=== PATIENT | female | born 1995 | race American Indian/Alaskan Native ===

== ENCOUNTER 2017-07-07 10:46 | Emergency (ER) | payer OTHER ==
[2017-07-07 11:20] VITALS: RESP 18; TEMP 97.8; O2SAT 100
[2017-07-07] MEDS ORDERED: Sodium Chloride 0.9% 1,000 ML IV STA (11:46)
[2017-07-07] MEDS ORDERED: DiphenhydrAMINE 50 mg/ml Inj IVP STA (11:48)
--- NOTE | 2017-07-07 11:52 | ED PDOC ---
Arrival/HPI - General Chief Complaint: Flu-like Symptoms Time Seen by Provider: 07/07/17 11:28 Historian: Patient - History of Present Illness Narrative History of Present Illness (Text): 07/07/17 11:48 This 21 yo female presents to this emergency department complaining of GALEANA x 4 days. Patient stated she also developed a sore throat, and a back pain x 4 days ago. Patient was seen at [facility] 4 days ago for sore throat, which she was prescribed ABX. Patient also stated she was seen at [facility] [place] 2 days ago for abdominal pain. She stated blood test, and X-rays were normal, and she was prescribed Maalox, Pepcid. Patient denies abdominal pain, nausea, vomiting, shortness of breath chest pain , pelvic pain, urinary symptoms, dizziness, recent travel, drug use, Time/Duration: Other (see hpi) Context: Home Past Medical History - Provider Review Nursing Documentation Reviewed: Yes - Cardiac Hx Cardiac Disorders: No - Pulmonary Hx Respiratory Disorders: No - Neurological Hx Neurological Disorder: No - HEENT Hx HEENT Disorder: Yes Other/Comment: THROAT INFECTION - Renal Hx Renal Disorder: No - Endocrine/Metabolic Hx Endocrine Disorders: No - Hematological/Oncological Hx Blood Disorders: No - Integumentary Hx Dermatological Disorder: No - Musculoskeletal/Rheumatological Hx Musculoskeletal Disorders: Yes Hx Back Pain: Yes - Gastrointestinal Hx Gastrointestinal Disorders: Yes Hx Constipation: Yes - Genitourinary/Gynecological Hx Genitourinary Disorders: No - Psychiatric Hx Psychophysiologic Disorder: No Hx Substance Use: No Family/Social History - Physician Review Nursing Documentation Reviewed: Yes Family/Social History: Other (noncontributory) Smoking Status: Light Smoker < 10 Cigarettes Daily Hx Alcohol Use: Yes Frequency of alcohol use: Socially Hx Substance Use: No Allergies/Home Meds Allergies/Adverse Reactions: Allergies No Known Allergies Allergy (Verified 07/07/17 11:24) Home Medications: Home Meds Medication Instructions Recorded Confirmed Acyclovir 500 mg PO DAILY 07/07/17 07/07/17 Famotidine [Pepcid] 20 mg PO DAILY 07/07/17 07/07/17 Ibuprofen [Motrin Tab] 600 mg PO Q6 PRN 07/07/17 07/07/17 Meclizine [Meclizine*] 25 mg PO Q8 PRN 07/07/17 07/07/17 Penicillin VK [Penicillin VK Tab] 500 mg PO QID 07/07/17 07/07/17 Review of Systems - Review of Systems Constitutional: Normal. absent: Fatigue, Weight Change, Fevers, Night Sweats Eyes: Normal ENT: Normal. absent: Sore Throat, Rhinorrhea, Epistaxis Respiratory: Normal. absent: SOB, Cough, Sputum Cardiovascular: Normal. absent: Chest Pain Gastrointestinal: Normal. absent: Abdominal Pain, Nausea, Vomiting Genitourinary Female: Normal. absent: Dysuria, Frequency Musculoskeletal: Normal. absent: Back Pain Skin: Normal. absent: Rash Neurological: Headache. absent: Dizziness, Focal Weakness, Gait Changes, Speech Changes, Facial Droop, Disequilibrium, Seizure Endocrine: Normal Hemo/Lymphatic: Normal Psychiatric: Normal Physical Exam Vital Signs Temp Pulse Resp BP Pulse Ox 07/07/17 12:45 71 18 118/86 100 07/07/17 11:19 97.8 F 74 18 120/92 H 100 Temperature: Afebrile Blood Pressure: Normal Pulse: Regular Respiratory Rate: Normal Appearance: Positive for: Well-Appearing, Non-Toxic, Comfortable Pain Distress: None Mental Status: Positive for: Alert and Oriented X 3 - Systems Exam Head: Present: Atraumatic, Normocephalic Pupils: Present: PERRL Extroacular Muscles: Present: EOMI Conjunctiva: Present: Normal Mouth: Present: Moist Mucous Membranes Neck: Present: Normal Range of Motion Respiratory/Chest: Present: Clear to Auscultation, Good Air Exchange. No: Respiratory Distress, Accessory Muscle Use Cardiovascular: Present: Regular Rate and Rhythm, Normal S1, S2. No: Murmurs Abdomen: Present: Normal Bowel Sounds. No: Tenderness, Distention, Peritoneal Signs Back: Present: Normal Inspection Upper Extremity: Present: Normal Inspection. No: Cyanosis, Edema Lower Extremity: Present: Normal Inspection. No: Edema Neurological: Present: GCS=15, CN II-XII Intact, Speech Normal, Motor Func Grossly Intact, Normal Sensory Function, Normal Cerebellar Funct, Gait Normal, Other (No neuro focal deficits) Skin: Present: Warm, Dry, Normal Color. No: Rashes Psychiatric: Present: Alert, Oriented x 3, Normal Insight, Normal Concentration Medical Decision Making ED Course and Treatment: 07/07/17 15:06 Re-evaluation. Patient feels better. Discussed results and plan with patient who expresses understanding. All questions answered and there is agreement with the plan to discharge home with instructions. Patient stable for discharge. Return if symptoms persist or worsen. Patient tolerated PO fluids and meals. Patient feels better and whishes to be discharged home. Patient has a normal gait. No neuro focal deficits. Denies dizziness. Re-evaluation Time: 15:06 Reassessment Condition: Re-examined, Improved - Lab Interpretations Lab Results: 07/07/17 12:10 07/07/17 12:10 Lab Results 07/07/17 12:10: Sodium 140, Potassium 4.3, Chloride 104, Carbon Dioxide 24, Anion Gap 17, BUN 11, Creatinine 0.7, Est GFR ( Amer) > 60, Est GFR (Non- Af Amer) > 60, Random Glucose 82, Calcium 10.1, Total Bilirubin 0.7, AST 23, ALT 22, Alkaline Phosphatase 56, Total Protein 8.9 H, Albumin 5.0 H, Globulin 3.9, Albumin/Globulin Ratio 1.3, Lipase 141 07/07/17 12:10: WBC 6.2, RBC 5.19, Hgb 11.5 L, Hct 36.7, MCV 70.7 L, MCH 22.2 L , MCHC 31.3, RDW 15.7 H, Plt Count 206, Gran % 63.6, Lymph % (Auto) 28.6, Pratt % (Auto) 5.9, Eos % (Auto) 1.6, Baso % (Auto) 0.3, Gran # 3.95, Lymph # (Auto) 1.8, Pratt # (Auto) 0.4, Eos # (Auto) 0.1, Baso # (Auto) 0.02 07/07/17 12:00: Urine Opiates Screen Negative, Urine Methadone Screen Negative, Ur Barbiturates Screen Negative, Ur Phencyclidine Scrn Negative, Ur Amphetamines Screen Negative, U Benzodiazepines Scrn Negative, U Oth Cocaine Metabols Negative, U Cannabinoids Screen Negative 07/07/17 12:00: Urine HCG, Qual Negative - RAD Interpretation Narrative RAD Interpretations (Text): 07/07/17 15:05 atient Name / ID : JASON SESAY / [id number] Exam Date : 07/07/2017 14:12:35 ( Approved ) Study Comment : Sex / Age : F / 21Y Creator : Edgar Valdez MD Dictator : Edgar Valdez MD Medical Records Assistant : Mammography Technologist : Edgar Valdez MD Approver2 : Report Date : 07/07/2017 14:45:08 My Comment : PROCEDURE: CT HEAD WITHOUT CONTRAST. HISTORY: GALEANA COMPARISON: None available. TECHNIQUE: Axial computed tomography images were obtained through the head/brain without intravenous contrast. Radiation dose: Total exam DLP = 827.26 mGy-cm. This CT exam was performed using one or more of the following dose reduction techniques: Automated exposure control, adjustment of the mA and/or kV according to patient size, and/or use of iterative reconstruction technique. FINDINGS: HEMORRHAGE: No intracranial hemorrhage. BRAIN: No mass effect or edema. No atrophy or chronic microvascular ischemic changes. VENTRICLES: Unremarkable. No hydrocephalus. CALVARIUM: Unremarkable. PARANASAL SINUSES: Unremarkable as visualized. No significant inflammatory changes. MASTOID AIR CELLS: Unremarkable as visualized. No inflammatory changes. OTHER FINDINGS: None. IMPRESSION: Normal CT of the Head. 07/07/17 15:06 HISTORY: cough COMPARISON: No prior. FINDINGS: LUNGS: No active pulmonary disease. PLEURA: No significant pleural effusion identified, no pneumothorax apparent. CARDIOVASCULAR: Normal. OSSEOUS STRUCTURES: No significant abnormalities. VISUALIZED UPPER ABDOMEN: Normal. OTHER FINDINGS: None. IMPRESSION: No active disease. Radiology Orders: 07/07/17 11:54 CHEST PORTABLE [RAD] Stat 07/07/17 12:04 HEAD W/O CONTRAST [CT] Stat - Medication Orders Current Medication Orders: Discontinued Medications Diphenhydramine HCl (Benadryl) 50 mg IVP STAT STA Stop: 07/07/17 11:49 Last Admin: 07/07/17 12:56 Dose: 50 mg IVP Administration Document 07/07/17 12:56 RG (Rec: 07/07/17 12:56 [facility]-[id number]) Charges for Administration # of IVP Administrations 1 Sodium Chloride (Sodium Chloride 0.9%) 1,000 mls @ 999 mls/hr IV .Q1H1M STA Stop: 07/07/17 12:46 Last Admin: 07/07/17 12:15 Dose: 999 mls/hr eMAR Start Stop Document 07/07/17 12:15 RG (Rec: 07/07/17 12:27 [id number]) Intravenous Solution Start Date 07/07/17 Start Time 12:15 Metoclopramide HCl (Reglan) 10 mg IVP STAT STA Stop: 07/07/17 11:48 Last Admin: 07/07/17 12:56 Dose: 10 mg IVP Administration Document 07/07/17 12:56 (Rec: 07/07/17 12:56 [facility]-[id number]) Charges for Administration # of IVP Administrations 1 Disposition/Present on Arrival - Present on Arrival Any Indicators Present on Arrival: No History of DVT/PE: No History of Uncontrolled Diabetes: No Urinary Catheter: No History of Decub. Ulcer: No History Surgical Site Infection Following: None - Disposition Have Diagnosis and Disposition been Completed?: Yes Diagnosis: Headache Disposition: HOME/ ROUTINE Disposition Time: 15:08 Patient Plan: Discharge Patient Problems: Current Active Problems Problem Status Onset Headache Acute Condition: IMPROVED Discharge Instructions (ExitCare): Headache, Adult Additional Instructions: Call private doctor or clinic for follow up visit in 1-2 days. Take medication as instructed. Return to emergency if symptoms worsen. Prescriptions: Acetaminophen/Butalbital/Caf [Fioricet] 1 tab PO Q4H PRN #12 tab PRN Reason: Headache Referrals: Betzy Cummins MD [Primary Care Provider] - Follow up with primary Quinton Hurst MD [Staff Provider] - Follow up with primary Forms: [employer] ([place]), WORK NOTE
[2017-07-07 12:39] LABS: BASO # 0.02 K/mm3 (0.0-2.0); BASO % 0.3 % (0.0-3.0); EOS # 0.1 (0.0-0.7); EOS % 1.6 % (1.5-5.0); GRAN # 3.95 (1.4-6.5); GRAN % 63.6 % (50.0-68.0); HEMOGLOBIN 11.5 g/dL (12.0-16.0); LYMPH # 1.8 (1.2-3.4); LYMPH % 28.6 % (22.0-35.0); MEAN CELL VOLUME 70.7 fl (80.0-105.0); MEAN CORPUSCULAR HEMOGLOBIN 22.2 pg (25.0-35.0); MEAN CORPUSCULAR HGB CONC 31.3 g/dl (31.0-37.0); MONO # 0.4 (0.1-0.6); MONO % 5.9 % (1.0-6.0); PLATELET COUNT 206 10^3/uL (120.0-450.0); RBC 5.19 10^6/uL (3.5-6.1); RED CELL DISTRIBUTION WIDTH 15.7 % (11.5-14.5); WHITE BLOOD COUNT 6.2 10^3/ul (4.5-11.0)
[2017-07-07 12:51] LABS: ALB/GLOB RATIO 1.3 (1.1-1.8); ALT/SGPT 22 U/L (7-56); AST/SGOT 23 U/L (14-36); BLOOD UREA NITROGEN 11 mg/dL (7-21); CALCIUM 10.1 mg/dL (8.4-10.5); GFR AFRICAN-AMERICAN > 60; GFR NON-AFRICAN AMERICAN > 60; LIPASE 141 U/L (23-300)
--- NOTE | 2017-07-07 13:51 | RAD ---
HISTORY: cough COMPARISON: No prior. FINDINGS: LUNGS: No active pulmonary disease. PLEURA: No significant pleural effusion identified, no pneumothorax apparent. CARDIOVASCULAR: Normal. OSSEOUS STRUCTURES: No significant abnormalities. VISUALIZED UPPER ABDOMEN: Normal. OTHER FINDINGS: None. IMPRESSION: No active disease.
[2017-07-07 13:54] LABS: BARBITURATES, UR NEGATIVE (NEGATIVE); BENZODIAZEPINES, UR NEGATIVE (NEGATIVE); OPIATES, UR NEGATIVE (NEGATIVE); PHENCYCLIDINE, UR NEGATIVE (NEGATIVE)
--- NOTE | 2017-07-07 14:46 | CT ---
PROCEDURE: CT HEAD WITHOUT CONTRAST. HISTORY: GALEANA COMPARISON: None available. TECHNIQUE: Axial computed tomography images were obtained through the head/brain without intravenous contrast. Radiation dose: Total exam DLP = 827.26 mGy-cm. This CT exam was performed using one or more of the following dose reduction techniques: Automated exposure control, adjustment of the mA and/or kV according to patient size, and/or use of iterative reconstruction technique. FINDINGS: HEMORRHAGE: No intracranial hemorrhage. BRAIN: No mass effect or edema. No atrophy or chronic microvascular ischemic changes. VENTRICLES: Unremarkable. No hydrocephalus. CALVARIUM: Unremarkable. PARANASAL SINUSES: Unremarkable as visualized. No significant inflammatory changes. MASTOID AIR CELLS: Unremarkable as visualized. No inflammatory changes. OTHER FINDINGS: None. IMPRESSION: Normal CT of the Head.
[2017-07-07 15:33] VITALS: BP 120/73; PULSE 80
== END 2017-07-07 15:21 | disposition home or self-care (01) ==
LOC: ED 10:46 → MERGE 10:46 → ED 15:21
DX: R51 Headache (principal); F17.210 Nicotine dependence, cigarettes, uncomplicated
CPT/HCPCS: 70450; 71045; 80053; 80324; 80345; 80346; 80349; 80353; 80358; 80361; 83690; 83992; 84703; 85025; 96374; 96375; 99285; J1200; J2765; J7040

== ENCOUNTER 2017-07-29 18:48 | Emergency (ER) | payer OTHER ==
--- NOTE | 2017-07-29 18:54 | ED PDOC ---
Arrival/HPI - General Historian: Patient - History of Present Illness Time/Duration: Other (see hpi) Context: Home <Torres Simmons P - Last Filed: 07/29/17 21:52> <Mani Teague - Last Filed: 07/30/17 07:05> - General Time Seen by Provider: 07/29/17 18:50 - History of Present Illness Narrative History of Present Illness (Text): 07/29/17 18:54 This 22 yo female who denies pmh, presents to this ED c/o b/l throbbing GALEANA since this morning. Patient admits drinking beers last night. On the contrary to triage note, patient denied nausea, vomiting, abdominal pain or diarrhea. Patient denies diplopia, dysarthria, weakness, paresthesias, dizziness, sob, cp , fever, urinary symptoms or abnormal gait. (Torres Simmons) Past Medical History - Provider Review Nursing Documentation Reviewed: Yes - Cardiac Hx Cardiac Disorders: No - Pulmonary Hx Respiratory Disorders: No - Neurological Hx Neurological Disorder: No - HEENT Hx HEENT Disorder: Yes Other/Comment: THROAT INFECTION - Renal Hx Renal Disorder: No - Endocrine/Metabolic Hx Endocrine Disorders: No - Hematological/Oncological Hx Blood Disorders: No - Integumentary Hx Dermatological Disorder: No - Musculoskeletal/Rheumatological Hx Musculoskeletal Disorders: Yes Hx Back Pain: Yes - Gastrointestinal Hx Gastrointestinal Disorders: Yes Hx Constipation: Yes - Genitourinary/Gynecological Hx Genitourinary Disorders: No - Psychiatric Hx Psychophysiologic Disorder: No Hx Substance Use: No - Anesthesia Hx Anesthesia: No - Suicidal Assessment Feels Threatened In Home Enviroment: No <Torres Simmons P - Last Filed: 07/29/17 21:52> Family/Social History - Physician Review Nursing Documentation Reviewed: Yes Family/Social History: Other (noncontributory) Smoking Status: Light Smoker < 10 Cigarettes Daily Hx Alcohol Use: Yes Hx Substance Use: No <Torres Simmons P - Last Filed: 07/29/17 21:52> Allergies/Home Meds <SimmonsElizabeth marteim P - Last Filed: 07/29/17 21:52> <Mani Teague - Last Filed: 07/30/17 07:05> Allergies/Adverse Reactions: Allergies No Known Allergies Allergy (Verified 07/29/17 18:58) Review of Systems - Review of Systems Constitutional: Normal. absent: Fatigue, Weight Change, Fevers Eyes: Normal ENT: Normal Respiratory: Normal Cardiovascular: Normal Gastrointestinal: Normal Genitourinary Female: Normal. absent: Dysuria, Frequency, Hematuria, Vaginal Bleeding, Vaginal Discharge Musculoskeletal: Normal Skin: Normal Neurological: Headache. absent: Dizziness, Focal Weakness, Gait Changes, Speech Changes, Facial Droop, Disequilibrium Endocrine: Normal Hemo/Lymphatic: Normal Psychiatric: Normal <Simmons,Nahim P - Last Filed: 07/29/17 21:52> Physical Exam Temperature: Afebrile Blood Pressure: Normal Pulse: Regular Respiratory Rate: Normal Appearance: Positive for: Well-Appearing, Non-Toxic, Comfortable Pain Distress: None Mental Status: Positive for: Alert and Oriented X 3 - Systems Exam Head: Present: Atraumatic, Normocephalic Pupils: Present: PERRL Extroacular Muscles: Present: EOMI Conjunctiva: Present: Normal Mouth: Present: Moist Mucous Membranes Neck: Present: Normal Range of Motion Respiratory/Chest: Present: Clear to Auscultation, Good Air Exchange. No: Respiratory Distress, Accessory Muscle Use Cardiovascular: Present: Regular Rate and Rhythm, Normal S1, S2. No: Murmurs Abdomen: Present: Normal Bowel Sounds. No: Tenderness, Distention, Peritoneal Signs Back: Present: Normal Inspection Upper Extremity: Present: Normal Inspection. No: Cyanosis, Edema Lower Extremity: Present: Normal Inspection. No: Edema Neurological: Present: GCS=15, CN II-XII Intact, Speech Normal, Motor Func Grossly Intact, Normal Sensory Function, Normal Cerebellar Funct, Gait Normal, Memory Normal Skin: Present: Warm, Dry, Normal Color. No: Rashes Psychiatric: Present: Alert, Oriented x 3, Normal Insight, Normal Concentration <Simmons,Nahim P - Last Filed: 07/29/17 21:52> Vital Signs Temp Pulse Resp BP Pulse Ox 07/29/17 20:49 88 18 136/74 99 07/29/17 18:56 97.9 F 94 H 18 161/90 H 97 Medical Decision Making Re-evaluation Time: 20:45 Reassessment Condition: Re-examined, Improved <Simmons,Nahim P - Last Filed: 07/29/17 21:52> <Mani Teague - Last Filed: 07/30/17 07:05> ED Course and Treatment: 07/29/17 20:44 Re-evaluation. Patient feels better. Discussed results and plan with patient who expresses understanding. All questions answered and there is agreement with the plan to discharge home with instructions. Patient stable for discharge. Return if symptoms persist or worsen. Patient was recommended to avoid alcohol, to drink enough fluids, and well balance meals. (Torres Simmons) - Medication Orders Current Medication Orders: Discontinued Medications Diphenhydramine HCl (Benadryl) 50 mg IVP STAT STA Stop: 07/29/17 19:12 Last Admin: 07/29/17 19:41 Dose: Not Given Non-Admin Reason: Patient Refused IVP Administration Document 07/29/17 19:41 GIUSEPPE (Rec: 07/29/17 19:41 GIUSEPPE [id number]) Charges for Administration # of IVP Administrations 1 Sodium Chloride (Sodium Chloride 0.9%) 1,000 mls @ 999 mls/hr IV .Q1H1M STA Stop: 07/29/17 20:10 Last Admin: 07/29/17 20:03 Dose: 999 mls/hr eMAR Start Stop Document 07/29/17 20:03 GIUSEPPE (Rec: 07/29/17 20:03 GIUSEPPE [id number]) Intravenous Solution Start Date 07/29/17 Start Time 20:03 End Date 07/29/17 End time 21:30 Total Infusion Time 87 Metoclopramide HCl (Reglan) 10 mg IVP STAT STA Stop: 07/29/17 19:12 Last Admin: 07/29/17 20:02 Dose: 10 mg IVP Administration Document 07/29/17 20:02 GIUSEPPE (Rec: 07/29/17 20:02 GIUSEPPE [id number]) Charges for Administration # of IVP Administrations 1 - PA / MANAGER [employer] SAF[employer]Y / Resident Statement MD/DO has reviewed & agrees with the documentation as recorded. <Mani Teague - Last Filed: 07/30/17 07:05> Disposition/Present on Arrival - Present on Arrival Any Indicators Present on Arrival: No History of DVT/PE: No History of Uncontrolled Diabetes: No Urinary Catheter: No History Surgical Site Infection Following: None - Disposition Have Diagnosis and Disposition been Completed?: Yes Disposition Time: 21:52 Patient Plan: Discharge <Torres Simmons - Last Filed: 07/29/17 21:52> <Mani Teague - Last Filed: 07/30/17 07:05> - Disposition Diagnosis: Headache Disposition: HOME/ ROUTINE Condition: IMPROVED Discharge Instructions (ExitCare): Headache, Adult Additional Instructions: Call private doctor for follow up visit in 1-2 days. Take medication as instructed. Drink plenty of fluids and rest. Avoid drinking alcohol. Prescriptions: Naproxen 500 mg PO BID PRN #14 tablet PRN Reason: Pain, Severe (8-10) Referrals: Lance Ndiaye MD [Primary Care Provider] - Follow up with primary Forms: [employer] ([place])
[2017-07-29 18:58] VITALS: RESP 18; TEMP 97.9
[2017-07-29] MEDS ORDERED: Sodium Chloride 0.9% 1,000 ML IV STA (19:10)
[2017-07-29] MEDS ORDERED: DiphenhydrAMINE 50 mg/ml Inj IVP STA (19:11)
[2017-07-29 22:03] VITALS: BP 136/74; PULSE 88; O2SAT 99
== END 2017-07-29 22:03 | disposition home or self-care (01) ==
LOC: ED 18:48
DX: R51 Headache (principal)
CPT/HCPCS: 81025; 96361; 96374; 96375; 99284; J2765; J7040